=== PATIENT | male | born 1945 | race Caucasian/White ===

== ENCOUNTER → 2016-09-01 | Outpatient (CLI) | payer MEDICARE | END | disposition home or self-care (01) | LOC: CFH 11:48 | PROVIDERS: ATTEND Urology | DX: N20.0 Calculus of kidney (principal); R31.0 Gross hematuria; N32.3 Diverticulum of bladder | CPT/HCPCS: 76770 ==

== ENCOUNTER 2017-09-24 07:08 | Inpatient (IN) | payer MEDICARE ==
[~2017-09-24] VITALS: Ht 185.4 cm; Wt 103.6 kg
[2017-09-24] MEDS ORDERED: SODIUM CHLORIDE FLUSH 10ML SYR IVF ONE ×2 (08:00→08:30)
[2017-09-24] MEDS ORDERED: PLEASE ENTER ALLERGIES MC SCH (08:30)
[2017-09-24 08:38] LABS: ALBUMIN 3.4 g/dL (3.4-5.0); ANION GAP 10 mmol/L (5-15); CHLORIDE 103 mmol/L (98-107); CREATININE 1.23 mg/dL (0.7-1.3)
[2017-09-24] MEDS ORDERED: FINA5TAB4 PO (09:59)
[2017-09-24] MEDS ORDERED: MULT-717 PO (09:59)
[2017-09-24] MEDS ORDERED: LOSA50TA6 PO (09:59)
[2017-09-24] MEDS ORDERED: TAMS-11 PO (09:59)
[2017-09-24] MEDS ORDERED: AMLO5TAB2 PO (09:59)
[2017-09-24] MEDS ORDERED: MORPHINE SULFATE 4 MG/ML, 1ML IVPush PRN (10:00)
[2017-09-24] MEDS ORDERED: ONDANSETRON ODT 4 MG PO ONE (10:00)
[2017-09-24] MEDS ORDERED: ONDANSETRON ODT 4 MG ONE (10:03)
[2017-09-24] MEDS ORDERED: MORPHINE SULFATE 4 MG/ML, 1ML ONE (10:04)
[2017-09-24 10:10] LABS: MEAN CORPUSCULAR HEMOGLOBIN 30.3 pg (27.5-34.5); MEAN CORPUSCULAR HGB CONC 33.2 g/dL (33.2-36.2); MEAN CORPUSCULAR VOLUME 91.3 fL (81-97); MEAN PLATELET VOLUME 10.2 fL (7.4-10.4); PLATELET COUNT 120 x10^3/uL (130-400); RED BLOOD COUNT 5.68 x10^6/uL (4.38-5.82); RED CELL DISTRIBUTION WIDTH 13.9 % (9.4-14.8)
[2017-09-24 10:25] LABS: MD YES
[2017-09-24 10:27] LABS: BANDS%(MANUAL) 5 % (0-7); LYMPHS% (MANUAL) 10 % (22-44); MONOS#(MANUAL) 0.64 x10^3/uL (0.3-2.7); MONOS% (MANUAL) 4 % (2-9); SEG#(MANUAL) 12.96 x10^3/uL (1.8-6.8); SEGS% (MANUAL) 81 % (42-75)
[2017-09-24] MEDS ORDERED: OMNIPAQUE 350 MG/ML, 100ML BOTTLE ONE (10:27)
[2017-09-24 10:28] LABS: <PLATELET ESTIMATE> DECREASED; <RBC MORPHOLOGY> NORMAL; LARGE PLATELETS 1+
[2017-09-24 11:42] LABS: MICROSCOPIC INDICATED
[2017-09-24 11:43] LABS: CULTURE INDICATED? YES
[2017-09-24] MEDS ORDERED: CEFTRIAXONE 1,000 MG in SODIUM CHLORIDE 0.9% 50 ML IV SCH (12:00)
[2017-09-24] MEDS ORDERED: CEFTRIAXONE PMX 1GM/50ML 50 ML ONE (12:25)
[2017-09-24] MEDS ORDERED: ONDANSETRON 2MG/ML, 2ML IVPush PRN (13:30)
[2017-09-24] MEDS ORDERED: morphine SULFATE 10 MG/ML, 1ML IVPush PRN (13:30)
[2017-09-24] MEDS: SODIUM CHLORIDE 0.9% 1,000 ML IV SCH ×2 (13:45→20:32)
[2017-09-24] MEDS: ENOXAPARIN 40 MG/0.4 ML SQ SCH (14:27)
[2017-09-24] MEDS ORDERED: SODIUM CHLORIDE 0.9% 1,000 ML IV SCH ×2 (15:30)
[2017-09-24] MEDS ORDERED: hydrALAzine 20 MG/ML, 1ML IV PRN (16:30)
[2017-09-24] MEDS: AMPICILLIN/SULBACTAM 3 GM in SODIUM CHLORIDE 0.9% 100 ML IV SCH ×2 (16:47→22:51)
[2017-09-24 20:45] VITALS: BP 132/90
[2017-09-24] MEDS: ACETAMINOPHEN 325 MG TABLET PO PRN (21:41)
[2017-09-25] MEDS: SODIUM CHLORIDE 0.9% 1,000 ML IV SCH ×5 (02:13→22:33)
[2017-09-25 02:24] VITALS: BP 115/62
[2017-09-25] MEDS: AMPICILLIN/SULBACTAM 3 GM in SODIUM CHLORIDE 0.9% 100 ML IV SCH ×4 (04:47→22:32)
[2017-09-25] MEDS: ACETAMINOPHEN 325 MG TABLET PO PRN (04:52)
[2017-09-25 05:08] LABS: MEAN CORPUSCULAR HEMOGLOBIN 31.3 pg (27.5-34.5); MEAN CORPUSCULAR HGB CONC 34.2 g/dL (33.2-36.2); MEAN CORPUSCULAR VOLUME 91.6 fL (81-97); MEAN PLATELET VOLUME 9.7 fL (7.4-10.4); PLATELET COUNT 107 x10^3/uL (130-400); RED BLOOD COUNT 4.79 x10^6/uL (4.38-5.82); RED CELL DISTRIBUTION WIDTH 14.2 % (9.4-14.8)
[2017-09-25 05:11] LABS: ALBUMIN 2.6 g/dL (3.4-5.0); ANION GAP 10 mmol/L (5-15); CALCIUM 7.9 mg/dL (8.5-10.1); CHLORIDE 107 mmol/L (98-107)
[2017-09-25 05:15] LABS: ALANINE AMINOTRANSFERASE 26 U/L (12-78); ALKALINE PHOSPHATASE 55 U/L (45-117); BILIRUBIN,TOTAL 0.7 mg/dL (0.2-1.0); CREATININE 1.27 mg/dL (0.7-1.3); TOTAL PROTEIN 6.6 g/dL (6.4-8.2)
[2017-09-25 05:44] LABS: MD YES
[2017-09-25 05:46] LABS: <PLATELET ESTIMATE> DECREASED; <RBC MORPHOLOGY> NORMAL; BAND#(MANUAL) 0.73 x10^3/uL; BANDS%(MANUAL) 9 % (0-7); LYMPH#(MANUAL) 0.65 x10^3/uL (1-3.4); LYMPHS% (MANUAL) 8 % (22-44); MONOS#(MANUAL) 0.16 x10^3/uL (0.3-2.7); MONOS% (MANUAL) 2 % (2-9); SEG#(MANUAL) 6.56 x10^3/uL (1.8-6.8); SEGS% (MANUAL) 81 % (42-75)
[2017-09-25 05:47] LABS: <PLT MORPHOLOGY> NORMAL PLT MORPH
[2017-09-25 07:12] VITALS: BP 113/73
[2017-09-25 08:16] VITALS: BP 122/81
[2017-09-25] MEDS: MULTIVITAMINS/MINERALS TABLET PO SCH (08:18)
[2017-09-25] MEDS: TAMSULOSIN 0.4 MG CAP.ER.24H PO SCH (08:18)
[2017-09-25] MEDS: AMLODIPINE 5 MG TABLET PO SCH (08:18)
[2017-09-25] MEDS: FINASTERIDE 5 MG TABLET PO SCH (08:19)
[2017-09-25] MEDS: LOSARTAN 50MG TABLET PO SCH (08:19)
[2017-09-25] MEDS ORDERED: CEFTRIAXONE PMX 1GM/50ML 50 ML IV SCH (12:00)
[2017-09-25] MEDS: ENOXAPARIN 40 MG/0.4 ML SQ SCH (13:30)
[2017-09-25 14:40] VITALS: BP 132/76
[2017-09-25] MEDS ORDERED: SODIUM CHLORIDE 0.9% 1,000 ML IV SCH (15:30)
[2017-09-25] MEDS: HYDROcodone/APAP 5/325 TABLET PO PRN (17:09)
[2017-09-25 20:30] VITALS: BP 134/86
[2017-09-26] MEDS: AMPICILLIN/SULBACTAM 3 GM in SODIUM CHLORIDE 0.9% 100 ML IV SCH ×4 (04:40→22:58)
[2017-09-26 04:46] VITALS: BP 113/69
[2017-09-26 05:16] LABS: MEAN CORPUSCULAR HEMOGLOBIN 31.2 pg (27.5-34.5); MEAN CORPUSCULAR VOLUME 91.6 fL (81-97); MEAN PLATELET VOLUME 9.8 fL (7.4-10.4); PLATELET COUNT 122 x10^3/uL (130-400); RED BLOOD COUNT 4.33 x10^6/uL (4.38-5.82); RED CELL DISTRIBUTION WIDTH 14.3 % (9.4-14.8)
[2017-09-26 05:19] LABS: ALANINE AMINOTRANSFERASE 28 U/L (12-78); ALBUMIN 2.4 g/dL (3.4-5.0); ANION GAP 7 mmol/L (5-15); CALCIUM 7.3 mg/dL (8.5-10.1); CHLORIDE 107 mmol/L (98-107); CREATININE 0.99 mg/dL (0.7-1.3)
[2017-09-26 05:22] LABS: ALKALINE PHOSPHATASE 50 U/L (45-117); BILIRUBIN,TOTAL 0.7 mg/dL (0.2-1.0); TOTAL PROTEIN 6.1 g/dL (6.4-8.2)
[2017-09-26 05:50] LABS: MD YES
[2017-09-26 05:54] LABS: <PLATELET ESTIMATE> DECREASED; <PLT MORPHOLOGY> NORMAL PLT MORPH; <RBC MORPHOLOGY> NORMAL; BAND#(MANUAL) 0.22 x10^3/uL; BANDS%(MANUAL) 2 % (0-7); EOS#(MANUAL) 0.11 x10^3/uL (0.0-0.4); EOS% (MANUAL) 1 % (1-7); LYMPH#(MANUAL) 1.22 x10^3/uL (1-3.4); LYMPHS% (MANUAL) 11 % (22-44); MONOS#(MANUAL) 1.55 x10^3/uL (0.3-2.7); MONOS% (MANUAL) 14 % (2-9); SEG#(MANUAL) 7.99 x10^3/uL (1.8-6.8); SEGS% (MANUAL) 72 % (42-75)
[2017-09-26] MEDS ORDERED: POTASSIUM CHLORIDE 20 MEQ TAB.ER.PRT PO ONE (06:30)
[2017-09-26 06:52] VITALS: BP 127/77
[2017-09-26] MEDS: FINASTERIDE 5 MG TABLET PO SCH (09:35)
[2017-09-26] MEDS: TAMSULOSIN 0.4 MG CAP.ER.24H PO SCH (09:35)
[2017-09-26] MEDS: MULTIVITAMINS/MINERALS TABLET PO SCH (09:36)
[2017-09-26] MEDS: AMLODIPINE 5 MG TABLET PO SCH (09:36)
[2017-09-26] MEDS: LOSARTAN 50MG TABLET PO SCH (09:36)
[2017-09-26] MEDS: HYDROcodone/APAP 5/325 TABLET PO PRN ×4 (09:36→22:58)
[2017-09-26] MEDS ORDERED: SODIUM CHLORIDE 0.9% 1,000 ML IV SCH (13:15)
[2017-09-26] MEDS: HEPARIN 5,000 UNITS/ML, 1ML SQ SCH ×2 (13:35→21:08)
[2017-09-26 15:42] VITALS: BP 117/78
[2017-09-26 18:41] VITALS: BP 127/63
[2017-09-27 01:28] VITALS: BP 126/79
[2017-09-27] MEDS: AMPICILLIN/SULBACTAM 3 GM in SODIUM CHLORIDE 0.9% 100 ML IV SCH (04:34)
[2017-09-27] MEDS: HEPARIN 5,000 UNITS/ML, 1ML SQ SCH ×2 (04:34→12:14)
[2017-09-27] MEDS: HYDROcodone/APAP 5/325 TABLET PO PRN ×2 (04:38→13:29)
[2017-09-27 05:29] LABS: BASOPHILS # (AUTO) 0.02 x10^3/uL (0-0.1); BASOPHILS % (AUTO) 0 % (0-1); EOSINOPHILS # (AUTO) 0.17 x10^3/uL (0-0.4); EOSINOPHILS % (AUTO) 2 % (1-7); LYMPHOCYTES % (AUTO) 17 % (22-44); MD NO; MEAN CORPUSCULAR HEMOGLOBIN 30.6 pg (27.5-34.5); MEAN CORPUSCULAR HGB CONC 32.8 g/dL (33.2-36.2); MEAN CORPUSCULAR VOLUME 93.1 fL (81-97); MEAN PLATELET VOLUME 9.6 fL (7.4-10.4); MONOCYTES % (AUTO) 13 % (2-9); NEUTROPHILS # (AUTO) 6.69 x10^3/uL (1.8-6.8); NEUTROPHILS % (AUTO) 68 % (42-75); PLATELET COUNT 154 x10^3/uL (130-400); RED BLOOD COUNT 4.36 x10^6/uL (4.38-5.82); RED CELL DISTRIBUTION WIDTH 14.1 % (9.4-14.8)
[2017-09-27 05:31] LABS: ALBUMIN 2.3 g/dL (3.4-5.0); ANION GAP 6 mmol/L (5-15); CHLORIDE 109 mmol/L (98-107)
[2017-09-27 05:34] LABS: ALANINE AMINOTRANSFERASE 33 U/L (12-78); ALKALINE PHOSPHATASE 53 U/L (45-117); BILIRUBIN,TOTAL 0.7 mg/dL (0.2-1.0); CREATININE 0.98 mg/dL (0.7-1.3); TOTAL PROTEIN 6.4 g/dL (6.4-8.2)
[2017-09-27] MEDS ORDERED: POTASSIUM CHLORIDE 20 MEQ TAB.ER.PRT PO ONE (06:30)
[2017-09-27 07:00] VITALS: BP 147/92
[2017-09-27 07:06] LABS: HEMOGLOBIN A1C 6.6 % (4.2-6.3)
[2017-09-27] MEDS: TAMSULOSIN 0.4 MG CAP.ER.24H PO SCH (08:37)
[2017-09-27] MEDS: AMLODIPINE 5 MG TABLET PO SCH (08:38)
[2017-09-27] MEDS: MULTIVITAMINS/MINERALS TABLET PO SCH (08:38)
[2017-09-27] MEDS: FINASTERIDE 5 MG TABLET PO SCH (08:38)
[2017-09-27] MEDS ORDERED: SULFAMETH./TRIMETHOPRIM DS 800MG/160MG TABLET PO SCH (09:30)
[2017-09-27] MEDS ORDERED: MAGNESIUM HYDROXIDE 8%, 30ML UDC PO SCH (09:30)
[2017-09-27] MEDS ORDERED: DOCUSATE 100 MG CAPSULE PO SCH (09:30)
[2017-09-27] MEDS: LOSARTAN 50MG TABLET PO SCH (10:44)
[2017-09-27] MEDS ORDERED: SULF-169 PO (11:14)
[2017-09-27] MEDS ORDERED: ACET325T14 PO (11:14)
[2017-09-27] MEDS ORDERED: POTASSIUM CHLORIDE 20 MEQ PACKET PO ONE (13:00)
[2017-09-27 13:46] VITALS: BP_SYST 155; BP_SYST 187; BP_DIAS 70; BP_DIAS 90
== END 2017-09-27 15:50 | disposition home or self-care (01) | DRG 872 ==
LOC: ED 10:00 → EDIP 12:22 → 4NOR 13:41 → DCLOUNGE 09-27 15:30
PROVIDERS: ADMIT Internal Medicine; ATTEND Internal Medicine
DX: A41.9 Sepsis, unspecified organism (principal); D69.6 Thrombocytopenia, unspecified; D64.9 Anemia, unspecified; E87.1 Hypo-osmolality and hyponatremia; N10 Acute pyelonephritis; E87.6 Hypokalemia; I10 Essential (primary) hypertension; K76.89 Other specified diseases of liver; N20.0 Calculus of kidney; N21.0 Calculus in bladder; N28.1 Cyst of kidney, acquired; N32.3 Diverticulum of bladder; N40.1 Benign prostatic hyperplasia with lower urinary tract symptoms; Z87.440 Personal history of urinary (tract) infections; Z87.442 Personal history of urinary calculi; Z88.1 Allergy status to other antibiotic agents; Z79.899 Other long term (current) drug therapy
CPT/HCPCS: 36415; 74177; 80048; 80053; 81001; 82040; 83036; 83605; 83735; 84145; 85025; 87040; 87077; 87086; 87186; 96374; J0295; J0696; J1644; J1650; Q0162; Q9967; J7030

== ENCOUNTER 2017-09-28 21:42 | Inpatient (IN) | payer MEDICARE ==
[~2017-09-28] VITALS: Ht 185.4 cm; Wt 100.5 kg
[~2017-09-28 21:42] MED LIST: ACET325T14 PO; AMLO5TAB2 PO; FINA5TAB4 PO; LOSA50TA6 PO; MULT-717 PO; SULF-169 PO; TAMS-11 PO
[2017-09-28] MEDS ORDERED: SODIUM CHLORIDE FLUSH 10ML SYR IVF ONE (22:30)
[2017-09-28] MEDS ORDERED: KETOROLAC 30 MG/1 ML IVPush ONE (22:30)
[2017-09-28] MEDS ORDERED: PROMETHAZINE 25 MG/ML, 1ML IM ONE (22:30)
[2017-09-28] MEDS ORDERED: MORPHINE SULFATE 4 MG/ML, 1ML IVPush PRN (22:30)
[2017-09-28 22:46] LABS: CHLORIDE 106 mmol/L (98-107)
[2017-09-28 22:47] LABS: ALANINE AMINOTRANSFERASE 55 U/L (12-78); ALBUMIN 2.6 g/dL (3.4-5.0); ANION GAP 10 mmol/L (5-15); CALCIUM 8.6 mg/dL (8.5-10.1); CREATININE 1.77 mg/dL (0.7-1.3)
[2017-09-28] MEDS ORDERED: MORPHINE SULFATE 4 MG/ML, 1ML ONE (22:47)
[2017-09-28] MEDS ORDERED: KETOROLAC 30 MG/1 ML ONE (22:47)
[2017-09-28] MEDS ORDERED: PROMETHAZINE 25 MG/ML, 1ML ONE (22:47)
[2017-09-28 22:49] LABS: ALKALINE PHOSPHATASE 61 U/L (45-117); BILIRUBIN,TOTAL 0.6 mg/dL (0.2-1.0); TOTAL PROTEIN 7.1 g/dL (6.4-8.2)
[2017-09-28 22:58] LABS: MEAN CORPUSCULAR HEMOGLOBIN 31.2 pg (27.5-34.5); MEAN CORPUSCULAR VOLUME 91.8 fL (81-97); MEAN PLATELET VOLUME 9.2 fL (7.4-10.4); PLATELET COUNT 280 x10^3/uL (130-400); RED BLOOD COUNT 4.84 x10^6/uL (4.38-5.82); RED CELL DISTRIBUTION WIDTH 14.1 % (9.4-14.8)
[2017-09-28 23:16] LABS: BASOPHILS # (AUTO) 0.05 x10^3/uL (0-0.1); BASOPHILS % (AUTO) 0 % (0-1); EOSINOPHILS # (AUTO) 0.13 x10^3/uL (0-0.4); EOSINOPHILS % (AUTO) 1 % (1-7); LYMPHOCYTES # (AUTO) 1.46 x10^3/uL (1-3.4); LYMPHOCYTES % (AUTO) 11 % (22-44); MD SCAN; MONOCYTES # (AUTO) 1.27 x10^3/uL (0.2-0.8); MONOCYTES % (AUTO) 9 % (2-9); NEUTROPHILS # (AUTO) 10.62 x10^3/uL (1.8-6.8); NEUTROPHILS % (AUTO) 79 % (42-75)
[2017-09-29 00:18] LABS: MICROSCOPIC NOT IND
[2017-09-29 00:26] LABS: CULTURE INDICATED? NO
[2017-09-29 01:57] VITALS: BP 131/83
[2017-09-29 02:10] VITALS: BP 131/83
[2017-09-29] MEDS ORDERED: NS + 20MEQ KCL 1,000 ML IV SCH (04:46)
[2017-09-29] MEDS ORDERED: ONDANSETRON 2MG/ML, 2ML IVPush PRN (05:00)
[2017-09-29] MEDS ORDERED: OXYcodone IR 5MG TABLET PO PRN (05:00)
[2017-09-29] MEDS ORDERED: POLYETHYLENE GLYCOL 17 GM PACKET PO PRN (05:00)
[2017-09-29] MEDS ORDERED: DOCUSATE 100 MG CAPSULE PO PRN (05:00)
[2017-09-29] MEDS ORDERED: ACETAMINOPHEN 325 MG TABLET PO PRN ×2 (05:00→11:00)
[2017-09-29] MEDS ORDERED: CEFTRIAXONE PMX 1GM/50ML 50 ML IV SCH (05:00)
[2017-09-29] MEDS ORDERED: morphine SULFATE 10 MG/ML, 1ML IVPush PRN (05:00)
[2017-09-29 07:12] VITALS: BP 143/82
[2017-09-29] MEDS ORDERED: AMLODIPINE 5 MG TABLET PO SCH (09:00)
[2017-09-29] MEDS ORDERED: TAMSULOSIN 0.4 MG CAP.ER.24H PO SCH (09:00)
[2017-09-29] MEDS ORDERED: SENNA/DOCUSATE TABLET PO SCH (09:00)
[2017-09-29] MEDS ORDERED: FINASTERIDE 5 MG TABLET PO SCH (09:00)
[2017-09-29] MEDS ORDERED: LOSARTAN 50MG TABLET PO SCH (09:00)
[2017-09-29] MEDS ORDERED: FENTANYL PF 100 MCG/2ML ONE ×2 (09:16→11:17)
[2017-09-29] MEDS ORDERED: DEXAMETHASONE 4 MG/ML, 1ML ONE (09:50)
[2017-09-29] MEDS ORDERED: PROPOFOL 10 MG/ML, 20ML ONE (09:50)
[2017-09-29] MEDS ORDERED: OMNIPAQUE 350 MG/ML, 50 ML BOTTLE ONE (10:10)
[2017-09-29] MEDS ORDERED: OMNIPAQUE 350 MG/ML, 50 ML BOTTLE IV ONE (10:39)
[2017-09-29] MEDS ORDERED: MORPHINE SULFATE 4 MG/ML, 1ML IVPush PRN (11:00)
[2017-09-29] MEDS ORDERED: ONDANSETRON ODT 8 MG PO PRN (11:00)
[2017-09-29] MEDS ORDERED: ALBUTEROL SULFATE 2.5 MG/3 ML NPPB PRN (11:00)
[2017-09-29] MEDS ORDERED: PROMETHAZINE 25 MG/ML, 1ML IV PRN (11:00)
[2017-09-29] MEDS ORDERED: FENTANYL PF 100 MCG/2ML IV PRN (11:00)
[2017-09-29] MEDS ORDERED: KETOROLAC 30 MG/1 ML IV PRN (11:00)
[2017-09-29] MEDS ORDERED: OXYcodone 5 MG/5 ML ORAL.SOL UDC PO PRN (11:00)
[2017-09-29 12:36] VITALS: BP 131/86
[2017-09-29] MEDS ORDERED: ACET325T14 PO (16:23)
[2017-09-29] MEDS ORDERED: ONDA4TAB13 SL (16:23)
== END 2017-09-29 18:00 | disposition home or self-care (01) | DRG 853 ==
LOC: ED 22:32 → EDIP 09-29 00:55 → 3NW 09-29 01:53
PROVIDERS: ADMIT Family Medicine; ATTEND Internal Medicine
PROC: 0TC78ZZ Extirpation of Matter from Left Ureter, Via Natural or Artificial Opening Endoscopic (ICD-10-PCS; 2017-09-29)
PROC: BT1F1ZZ Fluoroscopy of Left Kidney, Ureter and Bladder using Low Osmolar Contrast (ICD-10-PCS; 2017-09-29)
PROC: 0T778DZ Dilation of Left Ureter with Intraluminal Device, Via Natural or Artificial Opening Endoscopic (ICD-10-PCS; principal; 2017-09-29 10:00)
DX: A41.9 Sepsis, unspecified organism (principal); K85.90 Acute pancreatitis without necrosis or infection, unspecified; N17.0 Acute kidney failure with tubular necrosis; E43 Unspecified severe protein-calorie malnutrition; N13.2 Hydronephrosis with renal and ureteral calculous obstruction; E86.0 Dehydration; I10 Essential (primary) hypertension; N40.0 Benign prostatic hyperplasia without lower urinary tract symptoms; K59.00 Constipation, unspecified; R74.8 Abnormal levels of other serum enzymes; N32.3 Diverticulum of bladder; Z80.6 Family history of leukemia; Z87.440 Personal history of urinary (tract) infections; Z79.899 Other long term (current) drug therapy; Z88.1 Allergy status to other antibiotic agents; Z68.29 Body mass index [BMI] 29.0-29.9, adult
CPT/HCPCS: 36415; 74176; 74420; 76700; 80053; 81003; 82360; 83690; 85025; 88300; C1726; J0696; J1100; J1885; J2550; J2704; J3010; J3480; Q9967; C1758; C2617